=== PATIENT | male | born 1970 | race Caucasian/White ===

== ENCOUNTER 2017-03-27 05:39 | Emergency (ER) | payer OTHER ==
[2017-03-27] MEDS ORDERED: IBUPROFEN 600 MG TABLET (FP) PO ONE ×2 (05:51→05:55)
--- NOTE | 2017-03-27 06:00 | PDOC ---
History of Present Illness - General Chief Complaint: Injury Stated Complaint: ANKLE INJURY Time Seen by Provider: 03/27/17 05:48 - History of Present Illness Initial Comments: 03/27/17 05:54 CHIEF COMPLAINT: ankle pain HISTORY OF PRESENT ILLNESS: 46 yo M with no PMH presents to ED with left ankle pain s/p injury on stairs. Patient reports that he was walking down stairs when "my ankle buckled and just rolled out." Patient c/o of pain to the lateral aspect of his ankle. Patient denies trauma to any other part of the body, denies LOC. No recent travel or sick contacts. PAST MEDICAL HISTORY: Denies past medical history FAMILY HISTORY: Denies SOCIAL HISTORY: Occupation: [employer]. Denies tobacco, alcohol, illicit drug use. SURGICAL HISTORY: Denies ALLERGIES: No known drug allergies REVIEW OF SYSTEMS General/Constitutional: Denies fever or chills. Denies weakness, weight change. HEENT: Denies change in vision. Denies ear pain or discharge. Denies sore throat. Cardiovascular: Denies chest pain or shortness of breath. Respiratory: Denies cough, wheezing, or hemoptysis. Gastrointestinal: Denies nausea, vomiting, diarrhea or constipation. Denies rectal bleeding. Genitourinary: Denies dysuria, frequency, or change in urination. Musculoskeletal: Left ankle pain and swelling. Denies neck or back pain. PHYSICAL EXAM General Appearance: Well-appearing, appropriately dressed. No apparent distress. HEENT: EOMI, PERRLA, normal ENT inspection, normal voice, TMs normal, pharynx normal. No conjunctival pallor. No photophobia, scleral icterus. Respiratory/Chest: Lungs CTAB. Cardiovascular: RRR. S1, S2. Vascular Pulses: Dorsalis-Pedis (R): 2+, Dorsalis-Pedis (L): 2+ Musculoskeletal/Extremities: Tenderness and swelling to L lateral malleolus and at base of 5th metarsal. FROM of all extremities, normal capillary refill. Pelvis Stable. No CVA tenderness. No tenderness to extremities, pedal edema, swelling, erythema or deformity. Integumentary: Appropriate color, dry, warm. No cyanosis, erythema, jaundice or rash Neurologic: warehouse driver II-XII intact. Fully oriented, alert. Appropriate mood/affect. Motor strength 5/5. No appreciable EOM palsy, facial droop or sensory deficit. Past History - Past Medical History Allergies/Adverse Reactions: Allergies Allergy/AdvReac Type Severity Reaction Status Date / Time No Known Allergies Allergy Verified 03/27/17 05:52 Home Medications: Ambulatory Orders Ibuprofen 600 mg PO TID PRN #21 tablet 03/27/17 - Psycho/Social/Smoking Cessation Hx Suicidal Ideation: No Smoking History: Never smoked ED Treatment Course - RADIOLOGY Radiology Studies Ordered: Category Date Time Status ANKLE & FOOT-LEFT* [RAD] Stat Radiology 03/27/17 05:50 Ordered Medical Decision Making - Medical Decision Making 03/27/17 06:00 46 yo M with no PMH presents to ED with left ankle pain s/p injury on stairs. -L foot/ankle x-ray -600 mg Motrin po 03/27/17 06:30 X-ray wet read negative for fracture or dislocation. ibuprofen rx sent to pharm. -bernie bandage applied -crutches Advised patient to take medication as prescribed and follow up with orthopedics in 5-7 days if symptoms persist. Advised patient of signs and symptoms for return to ED. Patient verbalized understanding and agrees to plan. *DC/Admit/Observation/Transfer Diagnosis at time of Disposition: Ankle sprain Qualifiers: Encounter type: initial encounter Involved ligament of ankle: unspecified ligament Laterality: left Qualified Code(s): S93.402A - Sprain of unspecified ligament of left ankle, initial encounter - Discharge Dispostion Admit: No - Prescriptions Prescriptions: Ibuprofen 600 mg PO TID PRN #21 tablet PRN Reason: Pain - Referrals Referrals: Jese Mondragon MD [Primary Care Provider] - Lb Redman MD [Staff Physician] - - Patient Instructions Printed Discharge Instructions: DI for Ankle Sprain, How To Perform RICE (Rest , Ice, Compress, Elevate) Additional Instructions: Please take medication as prescribed. Apply RICE (rest, ice, compress, elevate ) therapy to decrease swelling in your ankle. If your pain persists for more than 5-7 days, please follow up with orthopedics. If you experience any loss of sensation or decreased temperature to your foot, worsening pain or swelling, or any new or worsening symptoms, please return to the ER.
[2017-03-27 06:02] VITALS: BP 141/99; PULSE 74; TEMP 97.8; BMI 26.9
== END 2017-03-27 06:51 | disposition home or self-care (01) ==
LOC: JER 05:39
DX: S93.402A Sprain of unspecified ligament of left ankle, initial encounter (principal); X50.1XXA Overexertion from prolonged static or awkward postures, initial encounter; Y93.01 Activity, walking, marching and hiking; Y92.89 Other specified places as the place of occurrence of the external cause; Y99.0 Civilian activity done for income or pay
CPT/HCPCS: 73610-TC-LT; 73630-TC-LT; 99281-25